=== PATIENT | female | born 1960 | race American Indian/Alaskan Native ===

== ENCOUNTER 2017-10-23 13:47 | Inpatient (IN) | payer MEDICARE ==
[2017-10-23 14:07] VITALS: BMI 17.9
[2017-10-23 14:12] VITALS: RESP 18
--- NOTE | 2017-10-23 15:07 | C.PDOC ---
History Of Present Illness 57 year old female presenting with to the ED for a heroin detox. The patient reports that she last used at 11 this morning. Denies HI/SI ideation. Patient has been pre-screened. Time Seen by Provider: 10/23/17 14:24 Chief Complaint (Nursing): Substance Abuse History Per: Patient History/Exam Limitations: no limitations Onset/Duration Of Symptoms: Hrs Suicide/Self Injury Attempted (Context): None Modifying Factor(s): Narcotics (heroin) Severity: None Associated Symptoms: denies: Suicidal Thoughts, Suicidal Plan Recent travel outside of the [place]: No Past Medical History Reviewed: Historical Data, Nursing Documentation, Vital Signs Vital Signs: Last Vital Signs Temp 98.5 F 10/23/17 14:08 Pulse 81 10/23/17 14:08 Resp 18 10/23/17 14:08 BP 122/82 10/23/17 14:08 Pulse Ox 96 10/23/17 16:21 - Medical History PMH: Arthritis, COPD, Rheumatoid Arthritis Denies: Chronic Kidney Disease - [facility] Procedures OTHER SKIN & SUBQ I D (10/05/13) - Social History Hx Tobacco Use: Yes (5 cigarettes/day) Hx Alcohol Use: No (unknown) Hx Substance Use: Yes (heroin) - Immunization History Hx Tetanus Toxoid Vaccination: No Hx Influenza Vaccination: No Hx Pneumococcal Vaccination: No Review Of Systems Except As Marked, All Systems Reviewed And Found Negative. Constitutional: Positive for: Other (heroin detox) Physical Exam - Physical Exam Appears: Non-toxic, No Acute Distress Skin: Normal Color, Warm, Dry, No Rash Head: Atraumatic, Normacephalic, No Tenderness Eye(s): bilateral: Normal Inspection, PERRL, EOMI Ear(s): Bilateral: Normal Nose: Normal Oral Mucosa: Moist Tongue: Normal Appearing Lips: Normal Appearing Teeth: Normal Dentition Gingiva: Normal Appearing Throat: Normal Neck: Normal, Normal ROM, No Step Off Deformity, Supple Chest: Symmetrical, No Deformity, No Tenderness Cardiovascular: Rhythm Regular, No Murmur Respiratory: Normal Breath Sounds, No Rhonchi, No Wheezing Gastrointestinal/Abdominal: Normal Exam, Bowel Sounds, Soft, No Tenderness, No Mass, No Guarding, No Rebound Back: Normal Inspection, No CVA Tenderness, No Vertebral Tenderness Extremity: Normal ROM, No Tenderness, No Deformity, No Swelling Extremity: Bilateral: Atraumatic Neurological/Psych: Oriented x3, Normal Speech, Normal Cognition ED Course And Treatment - Laboratory Results Result Diagrams: 10/23/17 15:15 10/23/17 15:15 O2 Sat by Pulse Oximetry: 96 (RA) Pulse Ox Interpretation: Normal - Other Rad CXR X-Ray: Viewed By Me, Read By Radiologist Interpretation: HISTORY: COMPARISON: No prior. TECHNIQUE: Chest PA and lateral. FINDINGS: LINES AND TUBES: None. LUNG AND PLEURA: The lungs are hyperinflated and there is peribronchial thickening with chronic changes in both lungs. No focal consolidation. HEART AND MEDIASTINUM: The heart is not enlarged. The hilar and mediastinal contours are within normal limits. SKELETAL STRUCTURES: The bony structures are within normal limits for the patient's age. VISUALIZED UPPER ABDOMEN: Normal. OTHER FINDINGS: None. IMPRESSION: No active pulmonary disease. COPD. Medical Decision Making Medical Decision Makin Initial Impression 57 y/o female presenting for heroin detox Initial Plan * Alcohol Serum * EKG * CMP * Drug Screen * CBC * CXR * Urinalysis * Reevaluation 1625 Admitted at chest xray preliminary report read as over hyperinflation kyphosis. pt medically cleared and accepted by Dr. Bill. Diagnosis: Substance abuse Disposition Discussed With .: Emil Bill Counseled Patient/Family Regarding: Diagnosis - Disposition Disposition: HOSPITALIZED Disposition Time: 16:20 Condition: FAIR - Clinical Impression Clinical Impression: Drug abuse - Scribe Statement Chelita Oliva All medical record entries made by the Scribe were at my direction and personally dictated by me. I have reviewed the chart and agree that the record accurately reflects my personal performance of the history, physical exam, medical decision making, and the department course for this patient. I have also personally directed, reviewed, and agree with the discharge instructions and disposition.
[2017-10-23 15:18] LABS: BASO # 0.1 K/uL (0.0-0.2); BASO % 1.3 % (0.0-2.0); EOS # 0.3 K/uL (0.0-0.7); EOS % 3.5 % (0.0-4.0); HEMOGLOBIN 14.6 g/dL (11.0-16.0); LYMPH # 1.6 K/uL (1.0-4.3); LYMPH % 21.5 % (20.0-40.0); MEAN CELL VOLUME 87.1 fL (81.0-99.0); MEAN CORPUSCULAR HEMOGLOBIN 29.5 pg (27.0-31.0); MEAN CORPUSCULAR HGB CONC 33.9 g/dL (33.0-37.0); MEAN PLATELET VOLUME 8.2 fL (7.2-11.7); MONO # 0.7 K/uL (0.0-0.8); MONO % 9.2 % (0.0-10.0); NEUT # 4.6 K/uL (1.8-7.0); NEUT % 64.5 % (50.0-75.0); NRBC % 0.1 % (0.0-2.0); RBC 4.97 Mil/uL (3.80-5.20); RED CELL DISTRIBUTION WIDTH 13.7 % (11.5-14.5); WHITE BLOOD COUNT 7.2 K/uL (4.8-10.8)
[2017-10-23 15:28] LABS: SQUAMOUS EPITHIAL 1 /hpf (0-5); URINE BILIRUBIN NEGATIVE (NEGATIVE); URINE BLOOD NEGATIVE (NEGATIVE); URINE CLARITY Clear (Clear); URINE COLOR Yellow (YELLOW); URINE GLUCOSE (UA) NORMAL (Normal); URINE LEUKOCYTE ESTERASE NEG Leu/uL (Negative); URINE NITRATE NEGATIVE (NEGATIVE); URINE PROTEIN NEGATIVE (NEGATIVE); URINE UROBILINOGEN NORMAL mg/dL (0.2-1.0)
[2017-10-23 15:38] LABS: ALB/GLOB RATIO 1.1 (1.0-2.1); ALBUMIN 3.9 g/dL (3.5-5.0); ALT/SGPT 21 U/L (9-52); AST/SGOT 26 U/L (14-36); BLOOD UREA NITROGEN 11 mg/dL (7-17); CALCIUM 8.1 mg/dl (8.6-10.4); GFR AFRICAN-AMERICAN > 60; GFR NON-AFRICAN AMERICAN > 60
[2017-10-23 15:45] LABS: BARBITURATES, UR NEGATIVE (NEGATIVE); BENZODIAZEPINES, UR NEGATIVE (NEGATIVE); PHENCYCLIDINE, UR NEGATIVE (NEGATIVE)
[2017-10-23 15:46] LABS: OPIATES, UR POSITIVE (NEGATIVE)
--- NOTE | 2017-10-23 16:15 | RAD ---
HISTORY: COMPARISON: No prior. TECHNIQUE: Chest PA and lateral FINDINGS: LINES AND TUBES: None. LUNG AND PLEURA: The lungs are hyperinflated and there is peribronchial thickening with chronic changes in both lungs. No focal consolidation. HEART AND MEDIASTINUM: The heart is not enlarged. The hilar and mediastinal contours are within normal limits. SKELETAL STRUCTURES: The bony structures are within normal limits for the patient's age. VISUALIZED UPPER ABDOMEN: Normal. OTHER FINDINGS: None. IMPRESSION: No active pulmonary disease. COPD.
[2017-10-23] MEDS ORDERED: Aluminum Hydroxide/Magnesium Hydroxide Susp (30 mL) PO PRN (17:19)
--- NOTE | 2017-10-23 19:25 | PCM.BM ---
Treatment Plan Problems - Problems identified on initial assessmt Potential for opiate withdrawal Date Initiated: 10/23/17 Time Initiated: 19:24 Assessment reference: NA Status: Active Treatment assets and liabiliti Patient Assests: cooperative, ADL independent, negotiates basic needs, cognitively intact Patient Liabilities: substance abuse (opiates), medical problems (RA, COPD) - Milieu Protocol Maintain good personal hygiene: daily Encourage regular showers, daily Remind patient to perform daily oral care, daily Assist patient to perform ADL's Maintain personal safety: every shift Educate patient to report safety concerns to staff, every shift Monitor environment for contraband/sharps Medication safety: Monitor for expected outcome, potential side effects: every shift, Assess barriers to learning: every shift, Assess readiness for medication education: every shift
--- NOTE | 2017-10-24 17:11 | PCM.PSYCH ---
Initial Psychiatric Evaluation - Initial Psychiatric Evaluation Type of Admission: Voluntary Legal Status: Capacity Chief Complaint (in patient's own words): "I have opioid withdrawal symptoms" History of Present Illness and Precipitating Events: This is a 57 year old single white female with past medical history of carpal tunnel syndrome, rheumatoid arthritis, and opioid use disorder was admitted to the detox unit for the treatment of opioid withdrawal symptoms. Patient reported she is using 10 bags of heroin daily for the last 3 years. Patient stated she started using heroine for her joint pains off after coming from [place] to [place]. She stated she was on pain management for her , carpal tunnel syndrome. Patient reported heroin withdrawal symptoms including nausea, vomiting, diarrhea, muscle cramps, stomach cramps, yawning, and body aches. Patient denied any detox or rehabilitation in the past patient denied any or AA meetings in the past. patient denied other illicit drug use. Pt. smokes 10 cigarettes/day and is requesting a nicotine patch. This is patient 's 1st treatment attempt. No treatment history. Patient denied depressive symptoms manic symptoms. Patient denied perceptual disturbances. Pt. denies seizure hx. Physical health conditions are rheumatoid arthritis and COPD(nebulizer). Pt. reported a lifetime overdose in 2014--she was narcanned. Pt. reports MH dx. of anxiety-unmedicated. Current Medications: Active Medications Generic Name Dose Route Start Last Admin Trade Name Freq PRN Reason Stop Dose Admin Al Hydrox/Mg Hydrox/Simethicone 30 ml 10/23/17 17:19 Maalox 30 Ml PO TID PRN Indigestion / Heartburn Clonidine HCl 0.1 mg 10/23/17 17:19 Catapres PO Q8 PRN COWS Score More or Equal to 5 Hydroxyzine HCl 25 mg 10/23/17 17:20 Atarax PO Q4H PRN Anxiety Ibuprofen 400 mg 10/23/17 17:20 Motrin Tab PO Q6H PRN Pain, moderate (4-7) Loperamide HCl 2 mg 10/23/17 17:19 10/24/17 11:13 Imodium PO 2 mg Q8 PRN Administration Diarrhea Methadone HCl 15 mg 10/24/17 10:00 10/24/17 10:13 Methadone PO 10/27/17 09:44 15 mg DAILY JESSICA Administration Taper Nicotine 1 patch 10/23/17 18:02 10/24/17 10:12 Nicoderm Cq TD 1 patch DAILY JESSICA Administration Ondansetron HCl 4 mg 10/23/17 17:19 Zofran Tab PO Q8 PRN Nausea/Vomiting Trazodone HCl 50 mg 10/23/17 17:20 Desyrel PO HS PRN Insomnia Past Psychiatric History - Past Psychiatric History Previous Treatment History: None Prior Professional Help: denied History of Abuse: denied History of ETOH/Drug Use: please see HPI History of Family Illness: denied Pertinent Medical Hx (Current Medical&Sleep Prob, Allergies): Allergies Allergy/AdvReac Type Severity Reaction Status Date / Time azithromycin Allergy Verified 10/23/17 14:05 codeine Allergy Verified 10/23/17 14:05 metronidazole Allergy Verified 10/23/17 14:05 Penicillins Allergy VOMITING Verified 08/15/16 12:28 tramadol Allergy URTICARIA Verified 08/15/16 12:28 Cyclobenzaprine [Cyclobenzaprine HCl] 10 mg PO HS 10/23/17 Gabapentin [Neurontin] 600 mg PO TID 10/23/17 rheumatoid arthritis, carpal tunnel syndrome Review of Systems - Review of Systems Systems not reviewed;Unavailable: Acuity of Condition All systems: reviewed and no additional remarkable complaints except - Constitutional Constitutional: Chills, Sweats, Weakness, Malaise - EENT Eyes: As Per HPI Ears: UNREMARKABLE Nose/Mouth/Throat: Nasal Congestion, Other (positive yawning) - Breasts Breasts: UNREMARKABLE - Cardiovascular Cardiovascular: UNREMARKABLE - Gastrointestinal Gastrointestinal: Cramping, Diarrhea - Genitourinary Genitourinary: UNREMARKABLE - Reproductive: Female Reproductive:Female: UNREMARKABLE - Menstruation Menstruation: UNREMARKABLE - Musculoskeletal Musculoskeletal: Myalgias - Integumentary Integumentary: UNREMARKABLE - Neurological Neurological: UNREMARKABLE - Psychiatric Psychiatric: As Per HPI Mental Status Examination - Personal Presentation Personal Presentation: Looks older than stated age, Dressed appropriate to season - Affect Affect: Constricted - Motor Activity Motor Activity: Calm - Reliability in Providing Information Reliability in Providing Information: Good - Speech Speech: Organized - Mood Mood: Anxious - Formal Thought Process Formal Thought Process: No Impairment - Hallucinations/Delusions Hallucinations: Other (denied) Delusions: Other (denied) - Obsessions/Compulsions Obsessions: None Compulsions: None - Cognitive Functions Orientation: Person, Place, Situation, Time Sensorium: Alert Abstract Thinking: Chicken Estimate of Intelligence: Average Judgement: Intact, as evidence by: Good judgement, Intact, as evidence by: Insight regarding need for hospitalization Memory: Recent intact, as evidence by: Ability to recall events of the day - Risk Risk: Withdrawal, Falls - Strength & Assets Inventory Strength & Assets Inventory: Family support, Education, Cooperative - Limitations Limitations: Other (medical illness and chronic drug use) DSM 5 DX - DSM 5 DSM 5 Diagnosis: opioid dependence severe, opioid withdrawal symptoms Rheumatoid arthritis, carpal tunnel syndrome by history - Recommended/Plan of Treatment Treatment Recommendations and Plan of Treatment: methadone detox Gabapentin for augmentation As needed meds and vitamins Attend groups and activities [place] for abstinence and CBT for relapse prevention Support and psychoeducation Consider and encourage MAT Refer to after care consulted OT/PT for rheumatoid arthritis risk of falls and patient is using cane for walk time spent 30 minutes Projected ELOS: 5-6 days Discharge Plan and Discharge Criteria: Refer to after care - Smoking Cessation Smoking Cessation Initiated: Yes
--- NOTE | 2017-10-25 16:48 | PCM.PYCHPN ---
Psychiatric Progress Note - Psychiatric Progress Note Patient seen today, length of contact: 15 minutes Patient Chief Complaint: "I,m feeling better" Problems Identified/Issues Discussed: The pt is seen, chart reviewed, case discussed with staff. The pt is compliant with medications and reports no side-effects. Symptoms are improving but needs more time to stabilize. After care discussed, support and psychoeducation given. Medication Change: Yes Medical Record Reviewed: Yes Mental Status Examination - Cognitive Function Orientation: Person, Place, Situation, Time Memory: Intact Attention: WNL Concentration: Poor Association: WNL Fund of Knowledge: WNL Decription of patient's judgement and insights: Limited/limited - Mood Mood: Anxious - Affect Affect: Constricted - Speech Speech: Appropriate - Formal Thought Process Formal Thought Process: No Impairment Psychotic Thoughts and Behaviors: denied - Suicidal Ideation Suicidal Ideation: No Plan: denied - Homicidal Ideation Homicidal Ideation: No Plan: denied Goal/Treatment Plan - Goal/Treatment Plan Need for Continued Stay: Discharge may exacerbated symptoms, Severe functional impairment Progress Toward Problem(s) and Goals/Treatment Plan: continue methadone detox Gabapentin for augmentation As needed meds and vitamins Attend groups and activities [place] for abstinence and CBT for relapse prevention Support and psychoeducation Consider and encourage MAT Refer to after care consulted OT/PT for rheumatoid arthritis risk of falls and patient is using cane for walk Estimated Date of D/C: 10/27/17 - Smoking Cessation Smoking Cessation Initiated: Yes
[2017-10-26 09:22] VITALS: BP 114/85; PULSE 80; TEMP 97.9; O2SAT 98
--- NOTE | 2017-10-26 10:41 | PCM.PYCHDC ---
Mental Status Examination - Mental Status Examination Orientation: Person, Place, Situation, Time Memory: Intact Mood: Neutral Affect: Constricted Speech: Soft Attention: WNL Concentration: WNL Association: WNL Fund of Knowledge: WNL Formal Thought Process: No Impairment Description of patient's judgement and insight: good, fair Psychotic Thoughts and Behaviors: denies any AVH Suicidal Ideation: No Current Homicidal Ideation?: No Discharge Summary - Discharge Note Reason for Hospitalization: This is a 57 year old single white female with past medical history of carpal tunnel syndrome, rheumatoid arthritis, and opioid use disorder was admitted to the detox unit for the treatment of opioid withdrawal symptoms. Patient reported she is using 10 bags of heroin daily for the last 3 years. Patient stated she started using heroine for her joint pains off after coming from [place] to [place]. She stated she was on pain management for her , carpal tunnel syndrome. Patient reported heroin withdrawal symptoms including nausea, vomiting, diarrhea, muscle cramps, stomach cramps, yawning, and body aches. Patient denied any detox or rehabilitation in the past patient denied any or meetings in the past. patient denied other illicit drug use. Pt. smokes 10 cigarettes/day and is requesting a nicotine patch. This is patient 's 1st treatment attempt. No treatment history. Patient denied depressive symptoms manic symptoms. Patient denied perceptual disturbances. Pt. denies seizure hx. Physical health conditions are rheumatoid arthritis and COPD(nebulizer). Pt. reported a lifetime overdose in 2014--she was narcanned. Pt. reports MH dx. of anxiety-unmedicated. Consultations:: List each consultation separately and include: 1. Reason for request. 2. Findings. 3. Follow-up Summary of Hospital Course include:: 1. Description of specific treatment plan utilized for patients during their course of treatmen. 2. Summarize the time- course for resolution of acute symptoms and/or regressed behaviors. 3. Describe issues identified and worked on during hospitalization. 4. Describe medication utilized. 5. Describe medical problems identified and treated. 6. Reassessment of suicide risk Summary of Hospital Course: During the course of her stay, patient (pt) started progressively improving and she reports improvement in her mood and withdrawal symptoms. She started attending groups and meetings and started socializing. Patient denied any feelings of hopelessness, helplessness, and worthlessness, denied any problem with the sleep or appetite, denied suicidal ideation or homicidal ideation. Pt denied any auditory or visual hallucinations. Some changes were made in her current medications and patient was discharged on following medications. She tolerated these medications very well and denied any side effects. Pt stated that she will follow up with the methadone program at [facility]. - Final Diagnosis (DSM 5) Condition upon Discharge: FAIR DSM 5: opioid dependence severe, opioid withdrawal symptoms Disposition: HOME/ ROUTINE Follow-up Treatment Plan: Education: Pt was educated and counseled about the risks and benefits of taking and not taking medications. Pt was educated and counseled about the risks of drinking and abusing drugs. Pt was educated and counseled to go to the ER or call 911 if pt develop suicidal ideation or homicidal ideation, worsening of symptoms or severe side effects of the meds. Prescriptions/Medication Reconciliation: Gabapentin [Neurontin] 100 mg PO BID 14 Days cap traZODone [Desyrel] 50 mg PO HS PRN #14 tab PRN Reason: Insomnia - Smoking Cessation Smoking Cessation Medication prescribed: No - Antipsychotic Medications Pt discharged on 2 or more routine antipsychotic medications: No
== END 2017-10-26 11:30 | disposition home or self-care (01) | DRG 895 ==
LOC: C.ER 13:47 → C.7D 16:19
PROVIDERS: ADMIT Psychiatry & Neurology Psychiatry; ATTEND Psychiatry & Neurology Psychiatry
PROC: HZ2ZZZZ Detoxification Services for Substance Abuse Treatment (ICD-10-PCS; principal; 2017-10-23)
PROC: HZ59ZZZ Individual Psychotherapy for Substance Abuse Treatment, Supportive (ICD-10-PCS; 2017-10-23)
PROC: HZ90ZZZ Pharmacotherapy for Substance Abuse Treatment, Nicotine Replacement (ICD-10-PCS; 2017-10-23)
PROC: GZHZZZZ Group Psychotherapy (ICD-10-PCS; 2017-10-23)
PROC: GZ3ZZZZ Medication Management (ICD-10-PCS; 2017-10-23)
DX: F11.23 Opioid dependence with withdrawal (principal); F17.210 Nicotine dependence, cigarettes, uncomplicated; F41.9 Anxiety disorder, unspecified; G56.00 Carpal tunnel syndrome, unspecified upper limb; J44.9 Chronic obstructive pulmonary disease, unspecified; M06.9 Rheumatoid arthritis, unspecified; Z91.81 History of falling